=== PATIENT | female | born 2000 | race Caucasian/White ===

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

== ENCOUNTER 2019-02-13 18:02 | Emergency (ER) | payer OTHER ==
[~2019-02-13] VITALS: Ht 162.6 cm; Wt 100.5 kg
[2019-02-13 19:51] VITALS: BP 139/73
[2019-02-13] MEDS ORDERED: KETOROLAC TROMETHAMINE 60 MG/2 ML VIAL IM ONE (20:45)
== END 2019-02-13 21:56 | disposition home or self-care (01) ==
LOC: EMS 18:03
DX: J02.9 Acute pharyngitis, unspecified (principal)
CPT/HCPCS: 81025; 96372; 99283; J1885

== ENCOUNTER 2022-05-11 11:54 | Emergency (ER) | payer OTHER ==
[~2022-05-11] VITALS: Ht 160 cm; Wt 104.5 kg
[2022-05-11 14:01] LABS: COVID AG,FIA SOURCE NASOPHARYNGEAL
[2022-05-11 14:32] LABS: INFLUENZA TYPE A NEGATIVE FOR TYPE A (NEGATIVE); INFLUENZA TYPE B NEGATIVE FOR TYPE B (NEGATIVE)
[2022-05-11] MEDS ORDERED: OXYMETAZOLINE HCL 0.05% 15 ML NASAL SPRAY NASAL ONE (16:15)
[2022-05-11 16:26] VITALS: BP 132/80
== END 2022-05-11 16:28 | disposition home or self-care (01) ==
LOC: EMS 12:05
DX: J20.9 Acute bronchitis, unspecified (principal); Z20.822 Contact with and (suspected) exposure to COVID-19; Z28.311 Partially vaccinated for COVID-19
CPT/HCPCS: 87804; 99283

== ENCOUNTER 2022-06-29 10:30 | Emergency (ER) | payer OTHER ==
[~2022-06-29] VITALS: Ht 160 cm; Wt 105.0 kg
[2022-06-29 10:43] VITALS: BP 140/62
[2022-06-29] MEDS ORDERED: NAPR-1025 PO (16:21)
[2022-06-29] MEDS ORDERED: ACET-3385 PO (16:22)
[2022-06-29] MEDS ORDERED: KETOROLAC TROMETHAMINE 30 MG/ML VIAL IM ONE (16:30)
[2022-06-29] MEDS ORDERED: LIDOCAINE 1% 10 ML VIAL ONE (17:10)
== END 2022-06-29 17:50 | disposition home or self-care (01) ==
LOC: EMS 10:30
DX: S82.54XA Nondisplaced fracture of medial malleolus of right tibia, initial encounter for closed fracture (principal); X50.1XXA Overexertion from prolonged static or awkward postures, initial encounter; Y93.89 Activity, other specified; Y92.89 Other specified places as the place of occurrence of the external cause; Y99.8 Other external cause status
CPT/HCPCS: 99284; 29515; 73610; 73630; 96372; J1885; J3490

== ENCOUNTER 2023-10-17 14:59 | Emergency (ER) | payer OTHER ==
[~2023-10-17] VITALS: Ht 165.1 cm; Wt 95.0 kg
[~2023-10-17 14:59] MED LIST: ACET-3385 PO; NAPR-1025 PO
[2023-10-17 15:19] VITALS: TEMP 99.8
[2023-10-17 15:38] LABS: COVID AG,FIA SOURCE NASAL SWAB
[2023-10-17 15:58] LABS: INFLUENZA TYPE A NEGATIVE FOR TYPE A (NEGATIVE); INFLUENZA TYPE B NEGATIVE FOR TYPE B (NEGATIVE)
[2023-10-17 16:02] LABS: SARS-COV2 (COVID) ANTIGEN,FIA Positive (Negative)
[2023-10-17] MEDS ORDERED: IBUP-1492 PO (16:35)
[2023-10-17] MEDS ORDERED: ACET-3385 PO (16:37)
[2023-10-17] MEDS ORDERED: OXYM15SP57 NASAL (16:38)
[2023-10-17] MEDS ORDERED: FLUT16SP NASAL (16:40)
[2023-10-17 16:58] VITALS: BP 141/88; PULSE 81; RESP 16
== END 2023-10-17 17:01 | disposition home or self-care (01) ==
LOC: EMS 15:02
DX: U07.1 COVID-19 (principal)
CPT/HCPCS: 71045; 87804; 93005; 99285

== ENCOUNTER 2024-01-26 14:31 | Emergency (ER) | payer OTHER ==
[~2024-01-26] VITALS: Ht 160 cm; Wt 104.5 kg
[~2024-01-26 14:31] MED LIST changes: +FLUT16SP NASAL; +IBUP-1492 PO; +OXYM15SP57 NASAL
[2024-01-26 15:12] VITALS: TEMP 98.2
[2024-01-26] MEDS ORDERED: ACET-2080 PO (18:29)
[2024-01-26] MEDS ORDERED: IBUP-1554 PO (18:29)
[2024-01-26 19:05] VITALS: BP 121/63; PULSE 64; RESP 16
== END 2024-01-26 19:13 | disposition home or self-care (01) ==
LOC: EMS 14:31
DX: S93.401A Sprain of unspecified ligament of right ankle, initial encounter (principal); X58.XXXA Exposure to other specified factors, initial encounter; Y93.89 Activity, other specified; Y92.89 Other specified places as the place of occurrence of the external cause; Y99.8 Other external cause status
CPT/HCPCS: 99283